=== PATIENT | male | born 1985 | race American Indian/Alaskan Native ===

== ENCOUNTER 2019-06-18 13:16 | Emergency (ER) | payer BC ==
--- NOTE | 2019-06-18 14:23 | Event Note ---
ED Screening Note Date of service: 06/18/19 Time: 14:23 ED Screening Note: 34 y o male presents with right eye redness and nasal draining pt states he called his pcp and was told he needs eye drops, steroids as she is unable to see him in the office till next month He denies visionloss, pain or any other symptoms This initial assessment/diagnostic orders/clinical plan/treatment(s) is/are subject to change based on patients health status, clinical progression and re- assessment by fellow clinical providers in the ED. Further treatment and workup at subsequent clinical providers discretion. Patient/guardian urged not to elope from the ED as their condition may be serious if not clinically assessed and managed. Initial orders include: Pt presents with a non-medical emergency Examination is normal, Vital sign are stable Pt given information for clinics to follow up with Dr Campbell today for further treatment and evaluation Also discussed strict return precautions in detail with pt who verbalized understanding
[2019-06-18 14:24] VITALS: BP 138/92
== END 2019-06-18 15:00 | disposition left against medical advice (07) ==
LOC: ED 13:16
DX: L53.9 Erythematous condition, unspecified (principal); Z53.21 Procedure and treatment not carried out due to patient leaving prior to being seen by health care provider